=== PATIENT | male | born 1970 | race Caucasian/White ===

== ENCOUNTER 2021-02-24 07:51 | Emergency (ER) | payer OTHER ==
--- NOTE | 2021-02-24 08:24 | EDM.PDOC ---
ED HPI GENERAL MEDICAL PROBLEM - General Chief Complaint: Headache Stated Complaint: HEADACHE Time Seen by Provider: 02/24/21 08:06 Source of Information: Reports: Patient History Limitations: Reports: No Limitations - History of Present Illness INITIAL COMMENTS - FREE TEXT/NARRATIVE: Patient is a 50-year-old male who states he has been having fever with shaking chills with body ache which started February 15 of this year and comes and goes. Patient has not been vaccinated for Covid. He is unable to give me a reason why this is the case. Patient denies having cough and denies nausea and vomiting but is having diarrhea approximately 5 times over the last 24 hours. We will brings the patient in today as he is having a 9 out of 10 headache which got worse yesterday and continues today. Patient denies any sore throat. He denies any dysuria or hematuria. He denies any bloody or tarry stools. She has been treating himself with Tylenol without relief. Duration: Week(s): (two) Location: Reports: Generalized Quality: Reports: Ache, Dull Severity: Severe Improves with: Reports: None Worsens with: Reports: None Associated Symptoms: Reports: Fever/Chills, Headaches, Malaise. Denies: Confus ion, Chest Pain, Cough, Nausea/Vomiting, Shortness of Breath Treatments [employer]: Reports: Acetaminophen Headache Pain Score (Numeric/FACES): 9 - Related Data Allergies Allergy/AdvReac Type Severity Reaction Status Date / Time No Known Allergies Allergy Verified 02/24/21 08:09 Home Meds: Home Meds Lisinopril/Hydrochlorothiazide [Lisinopril-Hctz 10-12.5 mg Tab] 1 tab PO DAILY 02/07/18 [History] Simvastatin 1 tab PO DAILY 02/07/18 [History] Acetaminophen/oxyCODONE [Percocet 325-5 MG] 1 each PO Q4HR PRN #12 tab 02/24/21 [Rx] Rosuvastatin [Crestor] 1 tab PO BEDTIME 02/24/21 [History] Past Medical History Cardiovascular History: Reports: High Cholesterol, Hypertension Neurological History: Reports: Migraines - Infectious Disease History Infectious Disease History: Reports: Chicken Pox Social & Family History - Family History Family Medical History: No Pertinent Family History - Tobacco Use Tobacco Use Status *Q: Never Tobacco User Second Hand Smoke Exposure: No - Caffeine Use Caffeine Use: Reports: Coffee - Recreational Drug Use Recreational Drug Use: No ED ROS GENERAL - Review of Systems Review Of Systems: Comprehensive ROS is negative, except as noted in HPI. Constitutional: Reports: Fever, Chills, Malaise, Fatigue, Decreased Appetite HEENT: Reports: No Symptoms Respiratory: Reports: No Symptoms. Denies: Shortness of Breath Cardiovascular: Denies: Chest Pain GI/Abdominal: Reports: Diarrhea, Vomiting : Reports: No Symptoms Musculoskeletal: Reports: No Symptoms Skin: Reports: No Symptoms Neurological: Reports: No Symptoms - Physical Exam Exam: See Below Exam Limited By: No Limitations General Appearance: Alert, Mild Distress Head Exam: Atraumatic, Normocephalic Neck: Normal Inspection, Supple Respiratory/Chest: No Respiratory Distress, Lungs Clear, Normal Breath Sounds Cardiovascular: Regular Rate, Rhythm GI/Abdominal: Soft, Non-Tender Neuro Exam (Abbreviated): Alert, Oriented Back Exam: No: CVA Tenderness (L), CVA Tenderness (R) Extremities: Normal Inspection Skin Exam: Warm, Dry Course - Vital Signs Text/Narrative:: Antiemetics and pain meds as needed. Increase fluids. Continue with your prednisone and Zithromax. Return to emergency department if symptoms are worse. Last Recorded V/S: Last Vital Signs Temp 97.9 F 02/24/21 08:05 Pulse 80 02/24/21 08:05 Resp 20 02/24/21 08:05 BP 147/85 H 02/24/21 08:05 Pulse Ox 97 02/24/21 08:05 - Orders/Labs/Meds Labs: Laboratory Tests 02/24/21 02/24/21 02/24/21 Range/Units 08:18 08:50 08:50 WBC 6.90 (4.23-9.07) K/mm3 RBC 5.06 (4.63-6.08) M/mm3 Hgb 15.3 (13.7-17.5) gm/dl Hct 44.1 (40.1-51.0) % MCV 87.2 (79.0-92.2) fl MCH 30.2 (25.7-32.2) pg MCHC 34.7 (32.2-35.5) g/dl RDW Std Deviation 40.2 (35.1-43.9) fL Plt Count 234 (163-337) K/mm3 MPV 9.1 L (9.4-12.3) fl Neutrophils % (Manual) 83 H (40-60) % Band Neutrophils % 2 (0-10) % Lymphocytes % (Manual) 14 L (20-40) % Atypical Lymphs % 0 % Immat Monocytes % (Man) 0 Monocytes % (Manual) 1 L (2-10) % Eosinophils % (Manual) 0 L (0.8-7.0) % Basophils % (Manual) 0 L (0.2-1.2) Metamyelocytes % 0 Myelocytes % 0 Promyelocytes % 0 Blast Cells % 0 Plasma Cell % (Manual) 0 Nucleated RBCs 0.0 % Platelet Estimate Adequate RBC Morph Comment Normal Sodium 132 L (136-145) mEq/L Potassium 4.0 (3.5-5.1) mEq/L Chloride 95 L (98-107) mEq/L Carbon Dioxide 28 (21-32) mEq/L Anion Gap 13.0 (5-15) BUN 21 H (7-18) mg/dL Creatinine 1.3 (0.7-1.3) mg/dL Est Cr Clr Drug Dosing 70.51 mL/min Estimated GFR (MDRD) 58 (>60) mL/min BUN/Creatinine Ratio 16.2 (14-18) Glucose 130 H (70-99) mg/dL Calcium 8.6 (8.5-10.1) mg/dL Total Bilirubin 0.5 (0.2-1.0) mg/dL AST 19 (15-37) U/L ALT 17 (16-63) U/L Alkaline Phosphatase 51 (46-116) U/L Total Protein 7.4 (6.4-8.2) g/dl Albumin 3.5 (3.4-5.0) g/dl Globulin 3.9 gm/dL Albumin/Globulin Ratio 0.9 L (1-2) Urine Color (Yellow) Urine Appearance (Clear) Urine pH (5.0-8.0) Ur Specific [place] (1.005-1.030) Urine Protein (Negative) Urine Glucose (UA) (Negative) Urine Ketones (Negative) Urine Occult Blood (Negative) Urine Nitrite (Negative) Urine Bilirubin (Negative) Urine Urobilinogen (0.2-1.0) Ur Leukocyte Esterase (Negative) Influenza Type A RNA Negative (NEGATIVE) Influenza Type B RNA Negative (NEGATIVE) SARS-CoV-2 RNA (MILDRED) Positive H (NEGATIVE) 02/24/21 Range/Units 08:59 WBC (4.23-9.07) K/mm3 RBC (4.63-6.08) M/mm3 Hgb (13.7-17.5) gm/dl Hct (40.1-51.0) % MCV (79.0-92.2) fl MCH (25.7-32.2) pg MCHC (32.2-35.5) g/dl RDW Std Deviation (35.1-43.9) fL Plt Count (163-337) K/mm3 MPV (9.4-12.3) fl Neutrophils % (Manual) (40-60) % Band Neutrophils % (0-10) % Lymphocytes % (Manual) (20-40) % Atypical Lymphs % % Immat Monocytes % (Man) Monocytes % (Manual) (2-10) % Eosinophils % (Manual) (0.8-7.0) % Basophils % (Manual) (0.2-1.2) Metamyelocytes % Myelocytes % Promyelocytes % Blast Cells % Plasma Cell % (Manual) Nucleated RBCs % Platelet Estimate RBC Morph Comment Sodium (136-145) mEq/L Potassium (3.5-5.1) mEq/L Chloride (98-107) mEq/L Carbon Dioxide (21-32) mEq/L Anion Gap (5-15) BUN (7-18) mg/dL Creatinine (0.7-1.3) mg/dL Est Cr Clr Drug Dosing mL/min Estimated GFR (MDRD) (>60) mL/min BUN/Creatinine Ratio (14-18) Glucose (70-99) mg/dL Calcium (8.5-10.1) mg/dL Total Bilirubin (0.2-1.0) mg/dL AST (15-37) U/L ALT (16-63) U/L Alkaline Phosphatase (46-116) U/L Total Protein (6.4-8.2) g/dl Albumin (3.4-5.0) g/dl Globulin gm/dL Albumin/Globulin Ratio (1-2) Urine Color Yellow (Yellow) Urine Appearance Clear (Clear) Urine pH 5.5 (5.0-8.0) Ur Specific [place] > or = 1.030 (1.005-1.030) Urine Protein 2+ H (Negative) Urine Glucose (UA) Negative (Negative) Urine Ketones Negative (Negative) Urine Occult Blood Negative (Negative) Urine Nitrite Negative (Negative) Urine Bilirubin Negative (Negative) Urine Urobilinogen 0.2 (0.2-1.0) Ur Leukocyte Esterase Negative (Negative) Influenza Type A RNA (NEGATIVE) Influenza Type B RNA (NEGATIVE) SARS-CoV-2 RNA (MILDRED) (NEGATIVE) Meds: Medications Discontinued Medications Generic Name Dose Route Start Last Admin Trade Name Freq PRN Reason Stop Dose Admin Azithromycin 500 mg 02/24/21 09:35 02/24/21 10:25 Azithromycin 250 Mg Tab PO 02/24/21 09:36 500 mg ONETIME ONE Administration Diphenhydramine HCl 25 mg 02/24/21 10:31 02/24/21 11:11 Diphenhydramine 50 Mg/Ml Sdv IVPUSH 02/24/21 10:32 25 mg ONETIME ONE Administration Fentanyl 50 mcg 02/24/21 08:28 02/24/21 08:50 Fentanyl 100 Mcg/2 Ml Sdv IVPUSH 02/24/21 08:29 50 mcg ONETIME ONE Administration Sodium Chloride 1,000 mls @ 1,000 mls/hr 02/24/21 08:28 02/24/21 08:49 Normal Saline IV 02/24/21 09:27 1,000 mls/hr ONETIME ONE Administration Sodium Chloride 1,000 mls @ 1,000 mls/hr 02/24/21 09:35 02/24/21 10:26 Normal Saline IV 02/24/21 10:34 1,000 mls/hr ONETIME ONE Administration Ketorolac Tromethamine 30 mg 02/24/21 08:28 02/24/21 08:50 Ketorolac 30 Mg/Ml Sdv IVPUSH 02/24/21 08:29 30 mg ONETIME ONE Administration Metoclopramide HCl 10 mg 02/24/21 10:30 02/24/21 11:11 Metoclopramide 10 Mg/2 Ml Sdv IVPUSH 02/24/21 10:31 10 mg ONETIME ONE Administration Morphine Sulfate 4 mg 02/24/21 10:31 02/24/21 11:11 Morphine 4 Mg/Ml Syringe IVPUSH 02/24/21 10:32 4 mg ONETIME ONE Administration Prednisone 40 mg 02/24/21 08:28 02/24/21 08:49 Prednisone 20 Mg Tab PO 02/24/21 08:29 40 mg ONETIME ONE Administration Departure - Departure Time of Disposition: 11:54 Disposition: Home, Self-Care 01 Clinical Impression: Migraine, COVID-19 - Discharge Information Instructions: COVID-19 Vaccine Information, Dehydration, Adult, [id number], Migraine Headache, [id number] Referrals: Jovita Bell MD [Primary Care Provider] - Forms: ED Department Discharge Additional Instructions: Increase fluids. Meds as prescribed. Return to ER any fever chills vomiting or worse. Follow-up with PCP if not improving. Sepsis Event Note (ED) - Evaluation Sepsis Screening Result: No Definite Risk - Focused Exam Vital Signs: Vital Signs Temp Pulse Resp BP Pulse Ox 02/24/21 08:05 97.9 F 80 20 147/85 H 97
[2021-02-24] MEDS ORDERED: Sodium Chloride 0.9% 1,000 ML IV ONE ×2 (08:28→09:35)
[2021-02-24] MEDS ORDERED: fentaNYL 100 MCG/2 ML SDV IVPUSH ONE (08:28)
[2021-02-24] MEDS ORDERED: predniSONE 20 MG Tab PO ONE (08:28)
[2021-02-24] MEDS ORDERED: Ketorolac 30 MG/ML SDV IVPUSH ONE (08:28)
[2021-02-24 09:35] LABS: CORONAVIRUS COVID-19 NAA POSITIVE (NEGATIVE)
[2021-02-24] MEDS ORDERED: Azithromycin 250 MG Tab PO ONE (09:35)
[2021-02-24] MEDS ORDERED: Metoclopramide 10 MG/2 ML SDV IVPUSH ONE (10:30)
[2021-02-24] MEDS ORDERED: Morphine 4 MG/ML Syringe IVPUSH ONE (10:31)
[2021-02-24] MEDS ORDERED: diphenhydrAMINE 50 MG/ML SDV IVPUSH ONE (10:31)
== END 2021-02-24 12:20 | disposition home or self-care (01) ==
LOC: JD.ED 07:51
DX: U07.1 COVID-19 (principal); G43.909 Migraine, unspecified, not intractable, without status migrainosus; E78.00 Pure hypercholesterolemia, unspecified; I10 Essential (primary) hypertension; Z79.899 Other long term (current) drug therapy
CPT/HCPCS: 0240U; 36415; 80053; 81003; 85007; 85027; 96374; 96375; 99283; A9270; J1200; J1885; J2270; J2765; J3010; J7030; J7512

== ENCOUNTER 2021-02-25 11:54 | Emergency (ER) | payer OTHER ==
[2021-02-25] MEDS ORDERED: Ketorolac 30 MG/ML SDV IM ONE (14:01)
[2021-02-25] MEDS ORDERED: Metoclopramide 10 MG/2 ML SDV IM ONE (14:01)
[2021-02-25] MEDS ORDERED: diphenhydrAMINE 50 MG/ML SDV IM ONE (14:01)
--- NOTE | 2021-02-25 14:05 | EDM.PDOC ---
ED HPI GENERAL MEDICAL PROBLEM - General Chief Complaint: Headache Stated Complaint: MIGRAINE Time Seen by Provider: 02/25/21 13:52 Source of Information: Reports: Patient, Old Records, RN Notes Reviewed History Limitations: Reports: No Limitations - History of Present Illness INITIAL COMMENTS - FREE TEXT/NARRATIVE: Patient is a 50-year-old male who presents to the ER for his headache. Patient was diagnosed with COVID-19 yesterday, states he has been ill for 10 days. He was evaluated in the ER for his headache and ongoing illness was given multiple medications and sent home with oral Percocet. States that the headache returned today he did take some Percocet but this has only "taken the edge off". States that he has had temperatures at home, ranging from 99.5 to 101.3 F. States he has just generalized body aches, but the headache does seem to be the worst. No blurred vision or double vision or any sort of nausea or vomiting, he is having a little bit of diarrhea with this. Laboratory evaluation done yesterday was fairly unremarkable as well except for the COVID diagnosis. Headache Pain Score (Numeric/FACES): 8 - Related Data Allergies Allergy/AdvReac Type Severity Reaction Status Date / Time No Known Allergies Allergy Verified 02/24/21 08:09 Home Meds: Home Meds Lisinopril/Hydrochlorothiazide [Lisinopril-Hctz 10-12.5 mg Tab] 1 tab PO DAILY 02/07/18 [History] Simvastatin 1 tab PO DAILY 02/07/18 [History] Azithromycin [Zithromax] 250 mg PO DAILY 02/25/21 [History] Rosuvastatin [Crestor] 20 mg PO DAILY 02/25/21 [History] predniSONE [Prednisone] 2 tab PO DAILY 02/25/21 [History] Past Medical History Cardiovascular History: Reports: High Cholesterol, Hypertension Neurological History: Reports: Migraines - Infectious Disease History Infectious Disease History: Reports: Chicken Pox Social & Family History - Family History Family Medical History: No Pertinent Family History - Caffeine Use Caffeine Use: Reports: Coffee ED ROS GENERAL - Review of Systems Review Of Systems: Comprehensive ROS is negative, except as noted in HPI. - Physical Exam Exam: See Below Exam Limited By: No Limitations General Appearance: Alert, WD/WN, No Apparent Distress Eye Exam: Bilateral Eye: EOMI, Normal Inspection, PERRL Respiratory/Chest: No Respiratory Distress, Lungs Clear, Normal Breath Sounds, No Accessory Muscle Use, Chest Non-Tender Cardiovascular: Normal Peripheral Pulses, Regular Rate, Rhythm, No Edema GI/Abdominal: Normal Bowel Sounds, Soft, Non-Tender, No Distention, No Mass Neuro Exam (Abbreviated): Alert, Oriented, Normal Cognition, No Motor/Sensory Deficits Extremities: Normal Inspection, Normal Capillary Refill Psychiatric: Normal Affect, Normal Mood Skin Exam: Warm, Dry, Intact, Normal Color, No Rash Course - Orders/Labs/Meds Meds: Medications Discontinued Medications Generic Name Dose Route Start Last Admin Trade Name Jamesq PRN Reason Stop Dose Admin Diphenhydramine HCl 25 mg 02/25/21 14:01 02/25/21 14:56 Diphenhydramine 50 Mg/Ml Sdv IM 02/25/21 14:02 25 mg ONETIME ONE Administration Ketorolac Tromethamine 30 mg 02/25/21 14:01 02/25/21 14:56 Ketorolac 30 Mg/Ml Sdv IM 02/25/21 14:02 30 mg ONETIME ONE Administration Metoclopramide HCl 10 mg 02/25/21 14:01 02/25/21 14:56 Metoclopramide 10 Mg/2 Ml Sdv IM 02/25/21 14:02 10 mg ONETIME ONE Administration - Re-Assessments/Exams Free Text/Narrative Re-Assessment/Exam: 02/25/21 14:05 Patient presents to the ER for his migraine headache. We will go ahead and do Toradol Reglan and Benadryl for ongoing management. These medications be given IM. I did go over the course of COVID symptoms with the patient and he verbalized understanding. 02/25/21 15:37 Patient is feeling much better we will discharge him home at this time. Departure - Departure Time of Disposition: 15:37 Disposition: Home, Self-Care 01 Condition: Good Clinical Impression: Headache Qualifiers: Headache type: unspecified Headache chronicity pattern: acute headache Intractability: not intractable Qualified Code(s): R51.9 - Headache, unspecified - Discharge Information *PRESCRIPTION DRUG MONITORING PROGRAM REVIEWED*: No *COPY OF PRESCRIPTION DRUG MONITORING REPORT IN PATIENT GENET: No Instructions: Migraine Headache, [id number] Referrals: Jovita Bell MD [Primary Care Provider] - Forms: ED Department Discharge Additional Instructions: You were evaluated in the ED for your headache. You were given a combination of medications and for management. This did seem to provide you pretty good relief of your symptoms. Recommend that you go home and rest in a quiet, darkened room. Try also to keep well hydrated. Follow all other recommendations set forth regarding your ongoing COVID disease. Please return to the ED if your symptoms should change or worsen.
== END 2021-02-25 16:02 | disposition home or self-care (01) ==
LOC: JD.ED 11:54
DX: R51.9 Headache, unspecified (principal); E78.00 Pure hypercholesterolemia, unspecified; I10 Essential (primary) hypertension; Z79.899 Other long term (current) drug therapy
CPT/HCPCS: 96372; 99283; J1200; J1885; J2765

== ENCOUNTER 2021-08-11 15:44 | Emergency (ER) | payer OTHER ==
[2021-08-11] MEDS ORDERED: Acetaminophen/HYDROcodone 325-5 MG Tab PO ONE (17:29)
== END 2021-08-11 19:00 | disposition home or self-care (01) ==
LOC: JD.ED 15:44
DX: S46.212A Strain of muscle, fascia and tendon of other parts of biceps, left arm, initial encounter (principal); E78.00 Pure hypercholesterolemia, unspecified; I10 Essential (primary) hypertension; Z86.16 Personal history of COVID-19; Z79.899 Other long term (current) drug therapy; X50.1XXA Overexertion from prolonged static or awkward postures, initial encounter
CPT/HCPCS: 73080-26-LT; 73080-LT; 99283; A9270-GY